=== PATIENT | male | born 1975 | race Caucasian/White ===

== ENCOUNTER → 2016-10-17 | Outpatient (CLI) | payer OTHER ==
--- NOTE | 2016-10-17 09:32 | DIAGNOSTIC IMAGING REPORT ---
DOUBLE CONTRAST UPPER GI SERIES CLINICAL HISTORY: Left-sided abdominal pain. Gastroesophageal reflux. COMPARISON STUDY: None FLUOROSCOPY TIME: 2.1 minutes. TECHNIQUE: A double contrast upper GI series was performed. 21 fluoroscopic images were obtained. FINDINGS: Esophageal motility was normal. No esophageal mass or stricture was identified. No reflux was elicited. No hiatal hernia was identified. Gastric fold pattern was normal. Duodenal fold pattern was normal. Caliber of the opacified jejunum was normal. IMPRESSION: Unremarkable double contrast upper GI series. Electronically signed by: Graeme Baldwin M.D. 10/17/2016 9:31 AM Dictated Date/Time: 10/17/2016 9:30 AM
== END | disposition home or self-care (01) ==
LOC: C.RAD 08:19
PROVIDERS: ATTEND Family Medicine
DX: K21.9 Gastro-esophageal reflux disease without esophagitis (principal); R10.9 Unspecified abdominal pain; R11.0 Nausea; R68.81 Early satiety